=== PATIENT | female | born 1930 | race Caucasian/White ===

== ENCOUNTER → 2017-01-26 | Outpatient (CLI) | payer MEDICARE | END | disposition home or self-care (01) | LOC: GT 07:59 | PROVIDERS: ATTEND Family Medicine | DX: M47.10 Other spondylosis with myelopathy, site unspecified (principal); E63.9 Nutritional deficiency, unspecified; I10 Essential (primary) hypertension ==

== ENCOUNTER → 2017-07-30 | Outpatient (CLI) | payer MEDICARE | END | disposition home or self-care (01) | LOC: GT 07:26 | PROVIDERS: ATTEND Internal Medicine | DX: I50.9 Heart failure, unspecified (principal); Z86.73 Personal history of transient ischemic attack (TIA), and cerebral infarction without residual deficits ==

== ENCOUNTER → 2018-03-02 | Outpatient (CLI) | payer MEDICARE | LOC: GT 21:51 | PROVIDERS: ATTEND Internal Medicine | DX: N39.0 Urinary tract infection, site not specified (principal) ==

== ENCOUNTER 2018-03-06 09:09 | Inpatient (IN) | payer MEDICARE, MEDICAID ==
[2018-03-06] MEDS ORDERED: cefTRIAXone SODIUM 1 GM in SODIUM CHL 0.9% 50ML MIN-BAG+ 50 ML IVPB ONE (09:31)
--- NOTE | 2018-03-06 09:49 | RAD ---
Portable chest one view INDICATION: Syncope COMPARISON: August 27, 2015 IMPRESSION: Heart size within normal range. Mild tortuous aorta. Minimal scarring or atelectasis right base. No focal infiltrate or failure. Otherwise no acute process Electronically signed by: Boni Joyce MD 03/06/2018 9:48 AM CDT
[2018-03-06] MEDS ORDERED: predniSONE 20 MG TAB PO ONE (10:05)
[2018-03-06] MEDS ORDERED: ACETAMINOPHEN 325 MG TAB PO ONE ×2 (10:05→20:08)
[2018-03-06] MEDS ORDERED: diphenhydrAMINE HCL 25 MG CAP PO ONE (10:05)
[2018-03-06] MEDS ORDERED: PANTOPRAZOLE SODIUM IV 40 MG VIAL IV ONE (10:11)
[2018-03-06] MEDS ORDERED: SUCRALFATE 1 GM/10 ML 1 GM UD PO ONE (10:11)
[2018-03-06] MEDS ORDERED: cefTRIAXone SODIUM 1 GM VIAL ONE ×2 (10:14→19:49)
[2018-03-06] MEDS ORDERED: SODIUM CHL 0.9% 50ML MIN-BAG+ 50 ML IVPB ONE ×2 (10:15→19:49)
[2018-03-06] MEDS ORDERED: ACETYLCYSTEIN 20 % 6,000 MG/30 ML VIAL PO ONE (10:31)
[2018-03-06] MEDS ORDERED: ONDANSETRON ODT 8 MG TAB ONE (10:36)
[2018-03-06] MEDS ORDERED: ONDANSETRON ODT 8 MG TAB SL ONE (10:38)
--- NOTE | 2018-03-06 11:22 | CT ---
EXAM DESCRIPTION: CT ABDOMEN AND PELVIS WITH CONTRAST CLINICAL HISTORY: suspected gi bleed, anemia, syncope COMPARISON: None Available. TECHNIQUE: CT of the abdomen and pelvis are performed during IV bolus administration of 100 mL of Isovue 300. Oral contrast media was not utilized. This exam was performed according to our departmental dose-optimization program, which includes automated exposure control, adjustment of the mA and/or kV according to patient size and/or use of iterative reconstruction technique. FINDINGS: A tiny layering right posterior pleural effusion and small layering effusion in the left posterior costophrenic angle is present. Minor linear scarring or atelectasis in each lung base is also noted. The liver normally enhances without focal mass evident. The gallbladder is normally distended with calcified multiple small stones in the gallbladder neck. No acute inflammatory changes or ductal dilation noted. Small normal spleen without focal mass is noted and the pancreas is normal in appearance. Small normal adrenal glands are evident. Bilateral parapelvic cysts are unchanged from previous 2014 study demonstrating no evidence of hydronephrosis. Aortic calcification without aneurysm is present. The vena cava is normal without abnormal retroperitoneal adenopathy. Small and large bowel caliber is normal. There is questionably a small sliding-type hiatal hernia GE junction. No bowel obstruction or ileus is noted. Constipation with with dense stool distending the rectum and rectosigmoid is evident. Within the pelvis a small atrophic uterus is present. The bladder is poorly visualized with metallic artifact from right hip replacement. Moderate L1 and slightly milder T12 anterior compression deformities are present, age indeterminate without significant retropulsed bone. Multilevel facet arthropathy particularly at L5-S1 and to a lesser extent L4-5 is noted. A distinct bowel abnormality or mass to confirm a neoplasm on this study without oral contrast enhancement is not apparent IMPRESSION: 1. Tiny right and small left pleural effusion with minimal linear stranding or scarring in each posterior medial lung base 2. Cholelithiasis without ductal dilation. 3. Bilateral parapelvic cysts, larger and more prominent on the left than the right but unchanged from 2014. 4. Aortic atherosclerosis. 5. Stool-filled rectum and distal sigmoid suggesting an element of constipation. 6. Moderate L1 and mild T12 compression deformities, age indeterminate. Electronically signed by: Omar Carrion MD 03/06/2018 11:21 AM CDT
[2018-03-06] MEDS ORDERED: SODIUM CHLORIDE 0.9% 250ML 250 ML ONE (11:31)
--- NOTE | 2018-03-06 12:24 | ED.PDOC ---
History of Present Illness - General Chief Complaint: General Stated Complaint: Abnormal labs Time Seen by Provider: 03/06/18 09:21 Source: patient, family Exam Limitations: clinical condition - mild to moderate dementia - History of Present Illness Initial Comments: the patient is an 87-year-old female brought in by family from the group home secondary to general weakness and mild altered mental status. She had a couple of syncopal episodes over the last week. Additionally last week she had episodes of nausea and vomiting and diarrhea that may have had some blood in them. She has not had any previous GI bleeds in the past. She does have a history of TIAs, congestive heart failure, dementia, general anxiety and depression, chronic low back pain and B12 deficiency. Additionally she is mobility limited. She does take aspirin and ibuprofen. No history of any GI bleeds. No recent endoscopies. laboratory work done at the group home yesterday showed a hemoglobin and hematocrit of approximately 5 and 15. She is not hypotensive here. She is pleasant and cooperative. She does get dizzy with sitting up fast or attempting to stand up. Timing/Duration: unsure Severity: moderate Improving Factors: nothing Worsening Factors: movement Associated Symptoms: headaches, loss of appetite, malaise, nausea/vomiting, shortness of breath, weakness Allergies/Adverse Reactions: Allergies NO KNOWN ALLERGY Allergy (Verified 03/06/18 09:18) Home Medications: Ambulatory Orders Tramadol HCl [Ultram] 50 mg PO Q6HRS PRN #30 tab 11/16/15 Review of Systems - Review of Systems Constitutional: States: malaise, weakness EENTM: States: no symptoms reported Respiratory: States: short of breath - with activity Cardiology: States: syncope Gastrointestinal/Abdominal: States: diarrhea - last week, nausea, vomiting Genitourinary: States: no symptoms reported Musculoskeletal: States: no symptoms reported Skin: States: no symptoms reported Neurological: States: weakness Endocrine: States: no symptoms reported All other Systems: No Change from Baseline Past Medical History (General) - Patient Medical History Hx Seizures: No Hx Stroke: Yes - tia Hx Asthma: No Hx of COPD: No Hx Cardiac Disorders: No Hx Congestive Heart Failure: No Hx Pacemaker: No Hx Hypertension: No Hx Diabetes: No Hx Gastroesophageal Reflux: Yes Hx Cancer: Yes Hx MRSA: No - Vaccination History Hx Tetanus, Diphtheria Vaccination: Yes Hx Influenza Vaccination: Yes - 2017 Hx Pneumococcal Vaccination: Yes - Social History Hx Tobacco Use: No Hx Alcohol Use: No Hx Substance Use: No Hx Substance Use Treatment: No Hx Depression: No Hx Physical Abuse: No Hx Emotional Abuse: No Hx Suspected Abuse: No - Activities of Daily Living Fdc/Assisted Living (if applicable):: [facility] - Female History Patient : No Family Medical History - Family History Mother Family History: No Known Living Status: Unknown Physical Exam - Physical Exam General Appearance: Alert, Ill Appearing - the patient is very pale and weak. Eye Exam: bilateral normal Ears, Nose, Throat: normal ENT inspection, other - pale mucous membranes Neck: non-tender, full range of motion, supple Respiratory: lungs clear, normal breath sounds, no respiratory distress, no accessory muscle use Cardiovascular/Chest: normal peripheral pulses, no edema, other - regular rate Peripheral Pulses: radial,right: 2+, radial,left: 2+, dorsalis pedis,right: 2+, dorsalis pedis,left: 2+ Gastrointestinal/Abdominal: non tender, soft Rectal Exam: deferred Back Exam: no CVA tenderness, no vertebral tenderness Extremity: non-tender, normal inspection, no pedal edema, normal capillary refill Neurologic: investigative writer II-XII nml as tested, alert, normal mood/affect, oriented x 3 Skin Exam: normal color Comments: Vital Signs - 24 hr 03/06/18 03/06/18 03/06/18 09:18 09:39 10:32 Temperature 100.0 F H Pulse Rate [ 100 H 93 H 102 H Apical] Respiratory 16 20 16 Rate Blood Pressure 158/68 170/81 145/84 [Left Arm] O2 Sat by Pulse 97 100 96 Oximetry 03/06/18 03/06/18 03/06/18 11:53 11:55 11:56 Temperature 98.2 F 98.2 F 98.2 F Pulse Rate [ 97 H 97 H 97 H Apical] Respiratory 16 16 16 Rate Blood Pressure 145/61 145/61 145/61 [Left Arm] O2 Sat by Pulse 96 96 96 Oximetry 03/06/18 12:11 Temperature 98.2 F Pulse Rate [ 95 H Apical] Respiratory 16 Rate Blood Pressure 155/69 [Left Arm] O2 Sat by Pulse 98 Oximetry Progress - Progress Progress: 03/06/18 12:30 the patient is an 87-year-old female presenting to the emergency room with significant symptomatic anemia. She most likely had a GI bleed between one and 2 weeks ago. Her hemoglobin and hematocrit have been stable since yesterday. No evidence of any active bleeding at this time. She is receiving her first 2 units of packed red blood cells. It may be worthwhile to test her for Helicobacter pylori. As she is not demonstrating current evidence of any active bleeding family is not wanting to have her scoped at this time understanding there is significant risk with the endoscopy and anesthesia at her age. This is reasonable. She and family have reiterated her DO NOT RESUSCITATE status. No intubation. No ventilation. No electrical cardioversion. No chest compressions. They are fine of course with blood products and medications otherwise. They do understand that if she does have any recurrence of active hemorrhaging that she will likely need to be transferred for intervention at [facility] if they want intervention at that time. anticipated 2-3 day hospital stay for gradual transfusion to make sure that she tolerates it well. She will likely need to be transfused closer to a hemoglobin of 9 in order to prevent symptoms, given her comorbidities. She has received doses of Carafate Protonix and Zofran here. - Results/Orders Results/Orders: Laboratory Tests 03/06/18 03/06/18 03/06/18 09:10 09:10 09:10 WBC 9.0 RBC 1.64 L Hgb 4.9 L* Hct 14.7 L MCV 89.5 MCH 29.8 MCHC 33.4 RDW 15.4 H Plt Count 338 MPV 8.3 Absolute Neuts (auto) 7.60 H Absolute Lymphs (auto) 0.90 L Absolute Monos (auto) 0.50 Absolute Eos (auto) 0.00 Absolute Basos (auto) 0.00 Neutrophils % 84.0 H Lymphocytes % 10.5 L Monocytes % 5.2 Eosinophils % 0.0 L Basophils % 0.3 PT 12.2 INR 1.050 PTT (SP) 21.9 L D-Dimer, Quantitative 789 H* Sodium 140 Potassium 3.5 L Chloride 108 Carbon Dioxide 26 Anion Gap 9.5 L BUN 35 H Creatinine 1.08 BUN/Creatinine Ratio 32.4 H Random Glucose 126 H Serum Osmolality 288.9 Lactic Acid Calcium 8.4 Total Bilirubin 0.5 AST 19 ALT 12 Alkaline Phosphatase 58 Creatine Kinase 212 H* CK-MB (CK-2) 2.8 CK-MB (CK-2) % 1.30 Troponin I 0.06 H B-Natriuretic Peptide 302.0 H* Serum Total Protein 6.5 Albumin 3.2 Globulin 3.3 Albumin/Globulin Ratio 1.0 L Amylase 137 H Stool Occult Blood Patient ABO/Rh Antibody Screen Crossmatch 03/06/18 03/06/18 03/06/18 09:39 09:39 11:00 WBC RBC Hgb Hct MCV MCH MCHC RDW Plt Count MPV Absolute Neuts (auto) Absolute Lymphs (auto) Absolute Monos (auto) Absolute Eos (auto) Absolute Basos (auto) Neutrophils % Lymphocytes % Monocytes % Eosinophils % Basophils % PT INR PTT (SP) D-Dimer, Quantitative Sodium Potassium Chloride Carbon Dioxide Anion Gap BUN Creatinine BUN/Creatinine Ratio Random Glucose Serum Osmolality Lactic Acid 1.4 Calcium Total Bilirubin AST ALT Alkaline Phosphatase Creatine Kinase CK-MB (CK-2) CK-MB (CK-2) % Troponin I B-Natriuretic Peptide Serum Total Protein Albumin Globulin Albumin/Globulin Ratio Amylase Stool Occult Blood Positive Patient ABO/Rh O POSITIVE Antibody Screen Negative Crossmatch See Detail fecal occult was performed on the stool that she passed. Chest x-ray shows no evidence of any overt fluid overload or obvious significant infiltrate or mass. CT scan of abdomen and pelvis with IV contrast shows mild bilateral pleural effusions, chronic gallstones, stable parapelvic cysts, constipation, L1 and L2 compression fractures of indeterminate age. No obvious source for any GI bleed. This was done without oral contrast secondary to nausea. Departure - Departure Clinical Impression: GI bleed due to NSAIDs, Symptomatic anemia Syncope Qualifiers: Syncope type: unspecified Qualified Code(s): R55 - Syncope and collapse Disposition: Admit Patient Referrals: Omar Hedrick MD [Primary Care Provider] - 1-2 Weeks Home Medications: Ambulatory Orders Tramadol HCl [Ultram] 50 mg PO Q6HRS PRN #30 tab 11/16/15 Decision To Admit - Decistion To Admit Decision to Admit Reason: Medical Nature Decision to Admit Date: 03/06/18 Decision to Admit Time: 12:35
--- NOTE | 2018-03-06 13:24 | HP ---
SUPERVISING PHYSICIAN: Omar Hedrick MD CHIEF COMPLAINT: Generalized weakness. HISTORY OF PRESENT ILLNESS: Ms. Broussard is an 87-year-old female patient who was brought to the Emergency Department by her family from the alf due to ongoing general weakness and slightly altered mental status. It was noted that she had had a couple of syncopal episodes over the last week as well as some nausea, vomiting, diarrhea that was not noted to have any blood in it. She has no previous history fo gastrointestinal bleeds. She does have a history of transient ischemic attacks, congestive heart failure, dementia, anxiety, depression, chronic lower back pain and B12 deficiency. She is noted to be on aspirin and ibuprofen. No recent colonoscopy and endoscopy. Laboratory this past week was done at the alf the day before admission and showed she had a significantly decreased hemoglobin of 5 and hematocrit 15. She was hemodynamically stable. She was noted to have some dizziness sitting and attempting to stand. Laboratory studies in the Emergency Department showed her hemoglobin and hematocrit were 4.9 and 14.7 with platelet count 338,000, differential with an early left shift. Coagulation studies showed PT 12.2, PT- T 21.9, D-dimer 789. Chemistries showed she had a mild hypokalemia, but normal lactic acid and renal function showed creatinine 1.08. Cardiac workup showed slightly elevated troponin at 0.056, but liver functions within normal limits. Urinalysis showed trace leukocyte esterase with 5 to 10 WBCs, 5 to 10 epithelials and 1+ bacteria. She had one stool occult blood in the Emergency Room that was positive. On admission to the Emergency Room this morning, she had a chest x-ray and per radiologic interpretation, there were no acute findings. She also had CT of the abdomen and pelvis with contrast with radiology noting a tiny right pleural effusion with minimal linear stranding or scarring in each posterior medial lung base, cholelithiasis without ductal dilation, stool-filled rectum and distal sigmoid suggesting an element of constipation. Also, moderate L1 and mild T12 compression fracture, age indeterminate. In the Emergency Room, she was cross-matched and initiated on transfusion of 2 units of packed red blood cells. Hemodynamically, the patient was stable and mildly febrile with a temperature of 100.0, blood pressure 158/68 , respirations 16, saturation 97% on room air. Given the patient's severe anemia, symptomatology, advanced age and the fact that there were no signs of active bleeding, the patient is going to be admitted to the Medical/Surgical Floor for continuation of evaluation and treatment and transfusion of packed red blood cells. Discussion was had prior to admission that she was a No Resuscitation status with the patient's family understanding should she have occurrence of active hemorrhage, she will need to be transferred for further intervention at [facility] if they choose to have additional intervention at that time. She was admitted in stable condition. PAST MEDICAL HISTORY: 1. Carotid artery stenosis. 2. Congestive heart failure, diastolic with ejection fraction of 57% on last echocardiogram. 3. Hyperlipidemia. 4. Hypertension. 5. Pulmonary nodule measuring 3 mm, followed in outpatient setting. 6. Cholelithiasis, diagnosed in 2013. 7. Previous cerebrovascular accidents with transient ischemic attacks. 8. Breast cancer status post surgical resection and chemotherapy in 1974. PAST SURGICAL HISTORY: 1. Tonsillectomy. 2. Cataract removal. 3. Fracture repair of the right hip. HOME MEDICATIONS: 1. Potassium chloride 8 mEq extended release 1 tablet daily as needed with Lasix. 2. B12 1000 mcg monthly. 3. Aspirin 81 mg daily. 4. Lexapro 10 mg daily. 5. Tylenol 500 mg as needed for pain. 6. Ibuprofen 200 mg tablets 1 to 2 b.i.d. as needed. 7. Calcium with vitamin D 600 mg tablet 1 daily. 8. Milk of Magnesia as needed for constipation. ALLERGIES: NO KNOWN DRUG ALLERGIES. FAMILY HISTORY: Significant for cardiovascular disease, myocardial infarctions, strokes. SOCIAL HISTORY: The patient resides at a local alf. She is . She has never smokes and drinks alcohol on a social basis. REVIEW OF SYSTEMS: CONSTITUTIONAL: Positive for generalized weakness and malaise. HEENT: Denies nasal congestion, sore throat, earaches. RESPIRATORY: She does have some shortness of breath with activity, but no coughing or wheezing. CARDIOVASCULAR: As noted in history of present illness, near syncope/syncopal episodes. Denies chest pain, palpitations. GASTROINTESTINAL: As noted in history of present illness, she has some diarrhea the last week with nausea and vomiting, but no hematochezia, no melanotic stools, no constipation, no bright red blood per rectum. GENITOURINARY: Denies dysuria, hematuria, polyuria or other urinary symptoms. NEUROLOGIC: Increasing weakness . No focal deficits. The patient is essentially nonambulatory, but denies any ataxia, seizures, but has as noted has had a syncopal/near syncopal episode. PHYSICAL EXAMINATION: VITAL SIGNS: Temperature on admission 100.0. Pulse 100. Blood pressure 158/ 68. Respirations 16. Saturation 97% on room air. Admission weight 75.0 kg. GENERAL: On admission to the Medical/Surgical Floor, the patient is comfortable. She is ill-appearing and very pale in complexion, but appears to be in no acute distress. HEENT: Tympanic membranes clear bilaterally. Oropharynx is pink, moist. Mucous membranes without any lesions. NECK: Supple, nontender with full range of motion. No jugular venous distention noted. RESPIRATORY: Lungs clear to auscultation bilaterally without any rhonchi, wheezes, or rales. CARDIOVASCULAR: Regular rate and rhythm without any appreciable murmurs, gallops, or rubs. ABDOMEN: Soft, nontender. Positive bowel sounds. RECTAL: Deferred. EXTREMITIES: There is no cyanosis, clubbing or edema. She moves all extremities. NEUROLOGIC: The patient is alert and oriented times three. Cranial nerves II- XII are grossly intact. Facial features are symmetrical. Extraocular movements are within normal limits. There is no nystagmus noted. SKIN: Pale, but dry. LABORATORY: CBC showed white count 9,000, hemoglobin 4.9, hematocrit 14.7, platelet count 338,000, differential with early left shift. Coagulation studies showed an elevated D-dimer at 789, PT 12.2, PT-T 21.9. Chemistries showed mildly low potassium at 3.5, BUN 35, creatinine 1.08, glucose 126, lactic acid 1.4, calcium 8.4, magnesium 2.4. Liver functions all within normal limits. Troponin slightly elevated at 0.06, BNP slightly elevated at 302, amylase slightly elevated at 137. Urinalysis showed trace leukocyte esterase with 0 RBCs, 5 to 10 WBCs, 5 to 10 epithelials, 1+ bacteria. She had one occult blood stool that was positive. MICROBIOLOGY: Urine culture pending. RADIOLOGY: Chest x-ray in the Emergency Department per radiologic interpretation showed no acute findings. She also had CT of the abdomen and pelvis with contrast and per radiologic interpretation showed a tiny left pleural effusion with minimal linear stranding or scarring of the posterior mid lung bases, cholelithiasis without ductal dilation. There was also mention of bilateral peripelvic cysts, larger and more prominent on the left than the right , unchanged since 2014. She had a stool-filled rectum and distal sigmoid suggesting underlying constipation and moderate L1 and mild T12 compression deformities, age indeterminate. ASSESSMENT: 1. Symptomatic anemia with no evidence of acute loss, requiring transfusion of packed red blood cells. 2. Weakness and syncopal episode secondary to #1 along with previous history of transient ischemic attacks and carotid artery disease. 3. Urinary tract infection with cultures pending. 4. History of hypertension. 5. History of congestive heart failure with grade 1 diastolic dysfunction with last echocardiogram noting ejection fraction of 57%. 6. Pulmonary nodule noted in 2013 with no change, measuring 3 mm, being followed in the outpatient setting. 7. Chronic cholelithiasis without any evidence of cholecystitis, having been diagnosed in 2013. 8. Cerebrovascular accidents and transient ischemic attacks with carotid artery stenosis with the patient having elected to have no aggressive therapy. 9. History of breast cancer in 1974 with bilateral surgical resection and chemotherapy. PLAN: The patient is going to be admitted to the Medical/Surgical Floor for initiation of infusions of packed red blood cells. We will start with 2 units and this will be followed with a hemoglobin and hematocrit and infuse additional units according to those findings. With regard to urinary tract infection, cultures are pending. We will await culture results to further target antibiotic therapy. Until then, she will be on Rocephin 1 gram q.12h. She is quite frail, advanced in age, and with a congestive heart failure history , transfusion of blood will be slow to prevent any exacerbation of congestive heart failure. We will plan to give her Lasix 20 mg after the third unit and before the fourth if needed. The patient is a DNR and after talking to the family and the patient, they wish not to be transferred and seek any additional more aggressive treatment unless active bleeding was noted at which time it was discussed that the patient will need to be transferred to [facility] for further workup with a gastrointestinal specialist. Certainly at discharge in the outpatient setting at some point the patient will need endoscopy and colonoscopy to appropriately further address the anemia which more likely is chronic from an acute GI bleed that is probably resolved, but the patient has been slow in replacement of current loss of blood over the weeks. In regard to the elevated troponin, this more likely is related to the ongoing anemia and we will continue to monitor the patient. She currently is not reporting any chest pains and as such we will not repeat a troponin unless she continues to have any further symptoms. We will anticipate length of stay to be at least 2 to 3 days until she can be safely transfused at 3 to 4 units to bring her hemoglobin and hematocrit up to at least 9 and 28 possibly. Until then, we will continue to monitor the patient closely and treat appropriately. Once stable, she can be discharged back to the normal to continue with outpatient management with her primary care physician, Dr. Hedrick. #[id number] [facility] H[facility]PITALSabas
[2018-03-06] MEDS ORDERED: ONDANSETRON INJ 4 MG/2 ML VIAL IV PRN (13:45)
[2018-03-06] MEDS ORDERED: SODIUM CHLORIDE 0.9% (FLUSH) 10 ML SYG IV PRN (13:45)
[2018-03-06] MEDS ORDERED: IV SET AND CAP CHANGE INJ INJ SCH (14:00)
[2018-03-06] MEDS ORDERED: SODIUM CHLORIDE 0.9% 500ML 500 ML IVS SCH ×2 (14:00→20:30)
[2018-03-06] MEDS ORDERED: FUROSEMIDE INJ 20 MG/2 ML VIAL IV ONE (20:08)
[2018-03-06] MEDS: KCL 20MEQ/0.45% NS 1,000 ML IVS PRN (20:39)
[2018-03-06] MEDS: cefTRIAXone SODIUM 1 GM in SODIUM CHL 0.9% 50ML MIN-BAG+ 50 ML IVPB SCH (20:39)
[2018-03-07] MEDS ORDERED: SODIUM CHL 0.9% 50ML MIN-BAG+ 50 ML IVPB ONE ×2 (08:43→19:34)
[2018-03-07] MEDS ORDERED: cefTRIAXone SODIUM 1 GM VIAL ONE ×2 (08:43→19:35)
[2018-03-07] MEDS ORDERED: PANTOPRAZOLE INJECTION 40 MG in SODIUM CHLORIDE 0.9% 100ML 100 ML IVPB SCH (09:00)
[2018-03-07] MEDS ORDERED: PANTOPRAZOLE SODIUM IV 40 MG VIAL IV SCH (09:00)
[2018-03-07] MEDS: cefTRIAXone SODIUM 1 GM in SODIUM CHL 0.9% 50ML MIN-BAG+ 50 ML IVPB SCH ×2 (09:25→20:32)
--- NOTE | 2018-03-07 12:06 | PCM.CORE ---
Physician DVT/VTE - Contraindications Medication Contraindication: Medical Contraindication - GI BLEED ? - Nurse DVT Assessment & Total Each Risk Factor Represents 3 Points: Age over 75 years Each Risk Factor is 1 Point: Obesity (BMI >25) DVT Assessment Score: 4 - 5 or more Very High Risk Treatments: Early Ambulation *, Sequential Compression Device
[2018-03-07] MEDS: ESCITALOPRAM 10 MG TAB PO SCH (13:58)
[2018-03-07] MEDS: FUROSEMIDE 40 MG TAB PO SCH (13:58)
[2018-03-07] MEDS: KCL 20MEQ/0.45% NS 1,000 ML IVS PRN (13:58)
[2018-03-07] MEDS: DOCUSATE SODIUM 100 MG CAP PO SCH ×2 (13:58→20:32)
--- NOTE | 2018-03-07 21:40 | PN ---
DATE: 03/07/18 SUPERVISING PHYSICIAN: Omar Hedrick M.D. SUBJECTIVE: The patient received 3 units of blood over the last 18 or so hours without any complications. She has had no evidence of any bleeding acutely. She feels like she is improving clinically. She has remained afebrile. The patient has not had any complaints of chest pains or shortness of breath. OBJECTIVE: VITAL SIGNS: Temperature 98.5, pulse 74, blood pressure 143/77, respirations 18, satting 98% on room air. I's and O's show a positive balance of 255 with 2155 in, 1900 out. Weight is 75.4 kg. CHEST: Lungs are clear to auscultation. HEART: Regular rate and rhythm. ABDOMEN: Soft, non-tender. Positive bowel sounds. EXTREMITIES: No clubbing, cyanosis or edema. NEUROLOGIC : She is alert and oriented times three. LABORATORY: Repeat H&H this morning was 9.3 and 27.6 respectively with a repeat H&H in 12 hours at 5:00 showing 9.7 hemoglobin and 28.7 hematocrit. Platelet count 239. Chemistries show normal electrolytes with potassium 3.7, BUN 26 which is improved from admission of 35 and creatinine is 1.14, glucose 89 , calcium 8.2. Creatinine kinase 1.42 with troponin now baseline at 0.05. MICROBIOLOGY: Urine culture that was done on 03/02/18 at the assisted showed Escherichia coli that was pansensitive with the patient having been currently on Rocephin with the urine on admission continuing to show 1+ bacteria , 5 to 10 WBCs. No additional cultures were pending. ASSESSMENT: 1. Symptomatic anemia with no evidence of acute loss, receiving 3 units of packed red blood cells without any complications showing a stable H&H currently. 2. Weakness and syncopal episode secondary to #1 along with previous history of transient ischemic attacks and carotid artery disease. 3. Urinary tract infection with culture ordered but not currently pending with previous culture showing Escherichia coli that was pansensitive with the patient remaining on Rocephin and showing good response clinically. 4. History of hypertension showing to be stable. 5. History of congestive heart failure with grade 1 diastolic dysfunction with last echocardiogram noting ejection fraction of 57% with no signs of exacerbation. 6. Elevated troponin on admission secondary to severe anemia now back to baseline status with the patient reporting no chest pains. 7. Pulmonary nodule noted in 2014 currently measuring 3 mm, being followed as an outpatient but no changes noted. 8. Chronic cholelithiasis without any current evidence of cholecystitis, diagnosed initially in 2014. 8. Cerebrovascular accidents and transient ischemic attacks with carotid artery stenosis with the patient having elected to have no aggressive therapy. 9. History of breast cancer in 1974 with bilateral surgical resection and chemotherapy. PLAN: Will hold off on any additional transfusion of units today as she is showing good response to the first 3 units. Will repeat an H&H again in the morning and should it show to be stable, certainly could be discharged back to the care facility. I still have not been able to track down whether her culture actually was sent, but she continues on target antibiotic therapy as according to her last culture results with Rocephin. Will hopefully be able to discharge tomorrow. She will need followup in the outpatient setting for at least endoscopy and possibly a colonoscopy to further address the anemia which is probably more chronic from acute GI loss in recent weeks that has resolved with the patient having poor erythropoietin response due to advanced age. Hopefully again discharge tomorrow with close followup at discharge. Until then , continue to monitor and treat appropriately. #[id number] [facility]
[2018-03-08] MEDS: KCL 20MEQ/0.45% NS 1,000 ML IVS PRN (03:09)
[2018-03-08] MEDS ORDERED: cefTRIAXone SODIUM 1 GM VIAL ONE (09:00)
[2018-03-08] MEDS ORDERED: SODIUM CHL 0.9% 50ML MIN-BAG+ 50 ML IVPB ONE (09:00)
[2018-03-08] MEDS: FUROSEMIDE 40 MG TAB PO SCH (09:24)
[2018-03-08] MEDS: ESCITALOPRAM 10 MG TAB PO SCH (09:24)
[2018-03-08] MEDS: DOCUSATE SODIUM 100 MG CAP PO SCH (09:24)
[2018-03-08] MEDS: cefTRIAXone SODIUM 1 GM in SODIUM CHL 0.9% 50ML MIN-BAG+ 50 ML IVPB SCH (09:24)
[2018-03-08 14:37] VITALS: BP 154/79; TEMP 97.8; O2SAT 97
--- NOTE | 2018-03-09 15:10 | DS ---
SUPERVISING PHYSICIAN: Omar Hedrick M.D. DISCHARGE DIAGNOSIS: 1. Symptomatic anemia with no evidence of acute loss, receiving 3 units of packed red blood cells without any complications showing a stable H&H currently. 2. Weakness and syncopal episode secondary to #1 along with previous history of transient ischemic attacks and carotid artery disease. 3. Urinary tract infection with culture ordered but not currently pending with previous culture showing Escherichia coli that was pansensitive with the patient remaining on Rocephin and showing good response clinically. 4. History of hypertension showing to be stable. 5. History of congestive heart failure with grade 1 diastolic dysfunction with last echocardiogram noting ejection fraction of 57% with no signs of exacerbation. 6. Elevated troponin on admission secondary to severe anemia now back to baseline status with the patient reporting no chest pains. 7. Pulmonary nodule noted in 2013 currently measuring 3 mm, being followed as an outpatient but no changes noted. 8. Chronic cholelithiasis without any current evidence of cholecystitis, diagnosed initially in 2014. 8. Cerebrovascular accidents and transient ischemic attacks with carotid artery stenosis with the patient having elected to have no aggressive therapy. 9. History of breast cancer in 1974 with bilateral surgical resection and chemotherapy. HISTORY OF PRESENT ILLNESS: This is an 87-year-old female patient who was brought to the Emergency Department by her family from the skilled nursing due to ongoing general weakness and slightly altered mental status. She had had a couple of syncopal episodes over the last week as well as some nausea, vomiting and diarrhea that was not noted to have any blood in it. She has a previous history for gastrointestinal bleeds as well as transient ischemic attack, congestive heart failure, dementia, anxiety, depression, chronic low back pain and B12 deficiency. She is on aspirin and ibuprofen routinely. There is no recent colonoscopy or endoscopy. Her hemoglobin and hematocrit at the skilled nursing on the day prior to admission were 5 and 15, but she was hemodynamically stable. She did have some dizziness sitting and attempting to stand. In the Emergency Room her hemoglobin and hematocrit were 4.9 and 14.7 with platelet count 338,000. Her differential had an early left shift. Chemistries showed a mild hypokalemia, but normal lactic acid and renal function with creatinine 1.08. Cardiac workup was slightly elevated troponin at 0.056. Liver functions were within normal limits. She had 1 positive stool for occult blood. Her urinalysis was positive for a urinary tract infection and she was treated with Rocephin. There were no acute findings on her chest CT. CT of the abdomen and pelvis with contrast noted a tiny right pleural effusion with minimal linear stranding or scarring in each posterior medial lung base, cholelithiasis without ductal dilation, stool-filled rectum and distal sigmoid suggesting some constipation. Also, moderate L1 and T12 compression fracture that was age indeterminate. She was given 2 units of packed red blood cells. She was stable. The patient was admitted to the Medical/Surgical floor for a total of 3 units of packed red blood cells. At this point, the patient is a DNR. She was admitted in stable condition. HOSPITAL COURSE: She was given a total of 3 units of packed red blood cells. Her hemoglobin improved to 9.7 and stabilized at 10. Her hematocrit improved to 27.6 and has stabilized at 29. Her electrolytes have remained within normal limits. Her followup cardiac enzymes were within normal limits. She will be discharged to [facility] in stable condition. DISCHARGE PLAN: The patient will be discharged to [facility] in stable condition. Resumed her previous medications and diet. She will have physical therapy at [facility]. She is to followup with Dr. Mi within the next 2 weeks. There were no cultures sent for her urine, but she will be discharged home on 7 days of Cefdinir. She is to return to the hospital or followup with Dr. Mi for any other problems or complications. DISCHARGE MEDICATIONS: 1. Ibuprofen. 2. Milk of Magnesia. 3. Claritin. 4. Mucinex. 5. Tylenol. 6. B12 injection. 7. Colace. 8. Furosemide. 9. Potassium chloride. 10. Multivitamins. 11. Lexapro. 12. Calcium and Vitamin D. 13. 81 mg aspirin. 14. Robitussin. 15. Cefdinir. #[id number] [facility]
== END 2018-03-08 14:43 | DRG 812 ==
LOC: ER 09:09 → MS 13:22
PROVIDERS: ADMIT Nurse Practitioner Family; ATTEND Nurse Practitioner Acute Care
PROC: 30233N1 Transfusion of Nonautologous Red Blood Cells into Peripheral Vein, Percutaneous Approach (ICD-10-PCS; principal; 2018-03-06)
PROC: BW210ZZ Computerized Tomography (CT Scan) of Abdomen and Pelvis using High Osmolar Contrast (ICD-10-PCS; 2018-03-06)
DX: D64.9 Anemia, unspecified (principal); N39.0 Urinary tract infection, site not specified; I50.32 Chronic diastolic (congestive) heart failure; E87.6 Hypokalemia; R55 Syncope and collapse; R53.1 Weakness; I11.0 Hypertensive heart disease with heart failure; R74.8 Abnormal levels of other serum enzymes; R91.1 Solitary pulmonary nodule; K80.20 Calculus of gallbladder without cholecystitis without obstruction; I65.29 Occlusion and stenosis of unspecified carotid artery; F03.90 Unspecified dementia, unspecified severity, without behavioral disturbance, psychotic disturbance, mood disturbance, and anxiety; F41.9 Anxiety disorder, unspecified; F32.9 Major depressive disorder, single episode, unspecified; G89.29 Other chronic pain; M54.9 Dorsalgia, unspecified; E53.8 Deficiency of other specified B group vitamins; R19.5 Other fecal abnormalities; Z66 Do not resuscitate; Z85.3 Personal history of malignant neoplasm of breast; Z86.73 Personal history of transient ischemic attack (TIA), and cerebral infarction without residual deficits; Z79.82 Long term (current) use of aspirin; Z79.1 Long term (current) use of non-steroidal anti-inflammatories (NSAID); Z79.899 Other long term (current) drug therapy

== ENCOUNTER → 2018-06-25 | Outpatient (CLI) | payer MEDICAID, MEDICARE | LOC: GMAM 14:16 | PROVIDERS: ATTEND Family Medicine | DX: R53.82 Chronic fatigue, unspecified (principal); I25.10 Atherosclerotic heart disease of native coronary artery without angina pectoris; I65.29 Occlusion and stenosis of unspecified carotid artery ==